=== PATIENT | male | born 1955 | race Caucasian/White ===

== ENCOUNTER 2019-02-09 20:20 | Emergency (ER) | payer BC ==
--- NOTE | 2019-02-09 20:36 | EDM.PDOC ---
ED HPI GENERAL MEDICAL PROBLEM - General Chief Complaint: Neurological Problem Stated Complaint: DISORIENTATED, TINGLING IN ARMS Time Seen by Provider: 02/09/19 20:33 Source of Information: Reports: Patient, Family History Limitations: Reports: No Limitations - History of Present Illness INITIAL COMMENTS - FREE TEXT/NARRATIVE: family states pt been c/o not feeling good yesterday thought was flu, tonight c/ o arm weak & numb unsteady no speech problem but confused. pt denies [place]ROE/CP/SOB c /o arms weak and numb. had stroke in 2015. ED ROS GENERAL - Review of Systems Review Of Systems: ROS reveals no pertinent complaints other than HPI. ED EXAM, NEURO - Physical Exam Exam: See Below Exam Limited By: No Limitations General Appearance: Alert, WD/WN, Mild Distress, Other (general discomfort) Eye Exam: Bilateral Eye: PERRL (pupils ess ER @ 4mm) Ears: Hearing Grossly Normal Throat/Mouth: Normal Voice, No Airway Compromise Head Exam: Atraumatic Neck: Non-Tender, Full Range of Motion Respiratory/Chest: No Respiratory Distress Cardiovascular: Regular Rate, Rhythm GI/Abdominal: Soft, Non-Tender Neurological: Alert, No Motor/Sensory Deficits, Oriented x 3, Other (unsteady) Extremities: Other (some arm weakness but normal ROM, NV wnl) Psychiatric: Flat Affect Skin Exam: Warm, Dry, Normal Color Course - Orders/Labs/Meds Orders: Active Orders 24 hr Category Date Time Status EKG 12 Lead [EKG Documentation Completion] [RC] STAT Care 02/09/19 20:29 Active CBC WITH AUTO DIFF [HEME] Stat Lab 02/09/19 20:30 Results INR,PT,PROTHROMBIN TIME [COAG] Stat Lab 02/09/19 20:30 Received MANUAL DIFFERENTIAL QA/NC [HEME] Stat Lab 02/09/19 20:30 Results PTT,PARTIAL THROMBOPLSTIN TIME [COAG] Stat Lab 02/09/19 20:30 Received Labs: Laboratory Tests 02/09/19 02/09/19 02/09/19 Range/Units 20:26 20:30 20:30 WBC 10.2 H (5.0-10.0) 10^3/uL RBC 5.25 (4.6-6.2) 10^6/uL Hgb 15.9 (14.0-18.0) g/dL Hct 47.3 (40.0-54.0) % MCV 90.1 (80-100) fL MCH 30.3 (27.0-34.0) pg MCHC 33.6 (33.0-35.0) g/dL Plt Count 197 (150-450) 10^3/uL Neut % (Auto) 35.3 L (42.2-75.2) % Lymph % (Auto) 54.7 H (20.5-50.1) % Larue % (Auto) 7.9 (2-8) % Eos % (Auto) 1.7 (1.0-3.0) % Baso % (Auto) 0.4 (0.0-1.0) % Add Manual Diff Yes Sodium 136 (135-145) mmol/L Potassium 3.8 (3.6-5.0) mmol/L Chloride 99 L (101-111) mmol/L Carbon Dioxide 28.0 (21.0-31.0) mmol/L Anion Gap 12.8 BUN 23 H (7-18) mg/dL Creatinine 1.0 (0.6-1.3) mg/dL Est Cr Clr Drug Dosing TNP Estimated GFR (MDRD) > 60 BUN/Creatinine Ratio 23.00 Glucose 132 H (74-105) mg/dL POC Glucose 113 H (70-105) mg/dl Calcium 9.4 (8.4-10.2) mg/dl Total Bilirubin 0.8 (0.2-1.0) mg/dL AST 30 (10-42) IU/L ALT 43 (10-60) IU/L Alkaline Phosphatase 66 (42-121) IU/L Troponin I < 0.02 (0.00-0.02) ng/ml Total Protein 7.3 (6.7-8.2) g/dl Albumin 4.2 (3.2-5.5) g/dl Globulin 3.1 Albumin/Globulin Ratio 1.35 - Re-Assessments/Exams Free Text/Narrative Re-Assessment/Exam: 02/09/19 21:[address] Maier @ [facility] who kindly accepted pt. Departure - Departure Time of Disposition: 21:10 Disposition: DC/Tfer to Acute Hospital 02 Condition: Fair Clinical Impression: CVA (cerebral vascular accident) Qualifiers: CVA mechanism: other Qualified Code(s): I63.89 - Other cerebral infarction - Discharge Information Forms: Interfacility Transfer EMTALA - My Orders Last 24 Hours: My Active Orders 02/09/19 20:29 EKG 12 Lead [EKG Documentation Completion] [RC] STAT 02/09/19 20:30 CBC WITH AUTO DIFF [HEME] Stat INR,PT,PROTHROMBIN TIME [COAG] Stat MANUAL DIFFERENTIAL QA/NC [HEME] Stat PTT,PARTIAL THROMBOPLSTIN TIME [COAG] Stat - Assessment/Plan Last 24 Hours: My Active Orders 02/09/19 20:29 EKG 12 Lead [EKG Documentation Completion] [RC] STAT 02/09/19 20:30 CBC WITH AUTO DIFF [HEME] Stat INR,PT,PROTHROMBIN TIME [COAG] Stat MANUAL DIFFERENTIAL QA/NC [HEME] Stat PTT,PARTIAL THROMBOPLSTIN TIME [COAG] Stat
[2019-02-09 20:57] LABS: ANION GAP 12.8; CHLORIDE,CL 99 mmol/L (101-111); SODIUM,NA 136 mmol/L (135-145)
== END 2019-02-09 21:23 ==
LOC: DL.ED 20:20
DX: I63.89 Other cerebral infarction (principal)
CPT/HCPCS: 36415; 70450; 80053; 81003; 82962; 84484; 85025; 85610; 85730; 93005; 99285-25